=== PATIENT | female | born 1975 | race Caucasian/White ===

== ENCOUNTER → 2017-11-16 | Outpatient (CLI) | payer BC, OTHER ==
--- NOTE | 2017-11-16 11:23 | MRI ---
STUDY: MRA OF THE BRAIN HISTORY: Diplopia, dizziness, headache and syncope. Comparison: None. Technique: 3D [id number] imaging of the intracranial circulation was performed. Findings: 3D [id number] MRA examination shows some atherosclerotic irregularity in the cavernous internal c arotid arteries bilaterally with associated stenosis. There is normalization of flow related enhancem ent in the supraclinoid ICAs bilaterally. There is no evidence of hemodynamically significant stenosi s or aneurysm. Posterior communicating arteries are not identified. The left vertebral artery is lisa nant. IMPRESSION: 1. 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 No evidence of hemodynami ricky significant stenosis or aneurysm within the anterior circulation above the level of the caverno us sinuses. Reported By:
--- NOTE | 2017-11-16 11:55 | MRI ---
MRI BRAIN WITHOUT AND WITH CONTRAST CLINICAL HISTORY: 42-year-old female with diplopia, dizziness, headache and syncope. COMPARISON: None. TECHNIQUE: Multiplanar, multisequence MR images of the brain were obtained prior to and following th e uneventful intravenous administration of 15 mL Omniscan. FINDINGS: There is no evidence of diffusion restriction. The craniocervical junction is normal. Pituitary and o ptic nerve complex are normal. There are a few, scattered punctate T2 FLAIR signal hyperintensities p resent within the subcortical/juxta cortical, periventricular and supraventricular white matter that are nonspecific in appearance but most likely to represent microvascular white matter ischemic change s. Normal signal characteristics and morphology are demonstrated within the cerebral cortex, corpus c allosum, deep bustamante nuclei, brainstem and cerebellum. The major vascular channels opacify normally and the major vascular flow voids, to include the dural venous sinuses, are intact. No abnormal suscepti bility on gradient imaging. The ventricular system is normal in size and morphology. The basilar cist erns are normal. There is no evidence of abnormal intracranial enhancement. The orbits and globes are within normal limits. Trace mucosal thickening of the maxillary sinuses wit h the remaining paranasal sinuses, mastoid air cells and tympanic cavities clear. IMPRESSION: 1. Nonspecific scattered punctate foci of white matter hyperintensity that can be seen with headaches and is usually the result of chronic microvascular white matter ischemic disease. 2. No acute ischemic or hemorrhagic insult. 3. Trace mucosal thickening maxillary sinuses, correlate clinically. Reported By:
== END ==
LOC: RAD 09:31
PROVIDERS: ATTEND Internal Medicine
DX: H53.2 Diplopia (principal); H42 Glaucoma in diseases classified elsewhere; R51 Headache; G43.909 Migraine, unspecified, not intractable, without status migrainosus; R55 Syncope and collapse
CPT/HCPCS: 70544; 70553